=== PATIENT | female | born 1995 | race Two or more races ===

== ENCOUNTER 2017-05-05 13:35 | Emergency (ER) | payer OTHER ==
[2017-05-05 13:47] VITALS: BP 119/57; PULSE 68; RESP 16; TEMP 98; O2SAT 99
[2017-05-05 14:16] LABS: BASO # 0.1 K/uL (0.0-0.2); BASO % 0.6 % (0.0-2.0); EOS # 0.2 K/uL (0.0-0.7); EOS % 1.2 % (0.0-4.0); HEMATOCRIT 41.4 % (34.0-47.0); LYMPH # 2.3 K/uL (1.0-4.3); LYMPH % 18.2 % (20.0-40.0); MEAN CELL VOLUME 85.1 fl (81.0-99.0); MEAN CORPUSCULAR HEMOGLOBIN 26.7 pg (27.0-31.0); MEAN CORPUSCULAR HGB CONC 31.4 g/dL (33.0-37.0); MEAN PLATELET VOLUME 9.8 fl (7.2-11.7); MONO # 1.1 K/uL (0.0-0.8); MONO % 8.7 % (0.0-10.0); NEUT # 8.9 K/uL (1.8-7.0); NEUT % 71.3 % (50.0-75.0); RED CELL DISTRIBUTION WIDTH 15.1 % (11.5-14.5); WHITE BLOOD COUNT 12.5 K/uL (4.8-10.8)
--- NOTE | 2017-05-05 14:16 | ED PDOC ---
HPI: Abdomen Time Seen by Provider: 05/05/17 13:47 Chief Complaint (Nursing): Abdominal Pain Chief Complaint (Provider): Abdominal pain History Per: Patient History/Exam Limitations: no limitations Onset/Duration Of Symptoms: Days (1) Outside of [place] travel?: No Current Symptoms Are (Timing): Still Present Location Of Pain/Discomfort: Epigastric Quality Of Discomfort: "Pain" Associated Symptoms: Nausea, Vomiting. denies: Diarrhea, Back Pain, Urinary Symptoms Additional Complaint(s): The patient is a 21yo female, presents to the ED for evaluation of epigastric pain, present since last night and is associated with 6 episodes of vomiting. Patient also reports associated nausea but denies any diarrhea. Patient reports she has a history of gastritis and GERD and is unsure if her symptoms are caused by that. Patient is also unsure if she is and reports her last menstrual period was approximately 2 weeks ago. She denies any associated vaginal bleeding, fever, back pain or chest pain. She offers no additional medical complaints. PCP: None provided Abnormal Vaginal Bleeding: No Last Menstral Period: 2 weeks ago : 1 Miscarriage: 1 Past Medical History Reviewed: Historical Data, Nursing Documentation, Vital Signs Vital Signs: Last Vital Signs Temp 98.0 F 05/05/17 13:44 Pulse 68 05/05/17 13:44 Resp 16 05/05/17 13:44 BP 119/57 L 05/05/17 13:44 Pulse Ox 99 05/05/17 14:21 - Medical History PMH: Arthritis, Gastritis, GERD Other PMH: Rheumatoid arthritis - Surgical History Surgical History: Appendectomy, Cholecystectomy - Family History Family History: States: Unknown Family Hx - Social History Current smoker - smoking cessation education provided: No Alcohol: None Drugs: Denies - Home Medications Home Medications: Ambulatory Orders Medication Instructions Recorded Ibuprofen [Motrin] 600 mg PO Q6 PRN #20 tab 08/02/14 Tobramycin/Dexamethasone [Tobradex 3.5 gm LEFTEYE Q8 #1 tube 08/02/14 Opht Oint] Dicyclomine [Bentyl] 20 mg PO Q12 PRN #20 tab 10/18/14 Nitrofurantoin Macrocrystals 100 mg PO BID #14 cap 10/18/14 [Macrobid] Ondansetron [Zofran Odt] 4 mg PO Q8H PRN #15 odt 10/18/14 Ondansetron ODT [Zofran ODT] 4 mg PO Q8 PRN #12 odt 05/05/17 - Allergies Allergies/Adverse Reactions: Allergies Allergy/AdvReac Type Severity Reaction Status Date / Time No Known Allergies Allergy Verified 08/02/14 20:01 Review of Systems ROS Statement: Except As Marked, All Systems Reviewed And Found Negative Constitutional: Negative for: Fever Cardiovascular: Negative for: Chest Pain Gastrointestinal: Positive for: Nausea, Vomiting, Abdominal Pain (epigastric). Negative for: Diarrhea Genitourinary Female: Negative for: Vaginal Bleeding Musculoskeletal: Negative for: Back Pain Physical Exam - Physical Exam Appears: Positive for: Non-toxic, No Acute Distress Head Exam: Positive for: ATRAUMATIC, NORMAL INSPECTION, NORMOCEPHALIC Skin: Positive for: Normal Color, Warm Eye Exam: Positive for: Normal appearance Neck: Positive for: Normal, Supple Cardiovascular/Chest: Positive for: Regular Rate, Rhythm. Negative for: Murmur Respiratory: Positive for: Normal Breath Sounds. Negative for: Respiratory Distress Gastrointestinal/Abdominal: Positive for: Soft, Tenderness (mild epigsatric tenderness) Back: Positive for: Normal Inspection. Negative for: L CVA Tenderness, R CVA Tenderness Extremity: Positive for: Normal ROM. Negative for: Deformity, Swelling Neurologic/Psych: Positive for: Alert, Oriented. Negative for: Motor/Sensory Deficits - Laboratory Results Result Diagrams: 05/05/17 14:13 05/05/17 14:13 - ECG O2 Sat by Pulse Oximetry: 99 (RA) Pulse Ox Interpretation: Normal - Progress Re-evaluation Time: 15:30 Condition: Re-examined, Improved Medical Decision Making Medical Decision Making: Time: 1355 Impression: Abdominal pain and vomiting Differential: Upreg is negative and Udip is negative as well; Differential includes but is not limited to gastritis, pancreatitis, GERD Plan: -- CMP -- Lipase -- IV NS 1L -- Pepcid 20 mg IVP -- Zofran 4mg IV --Reassess Scribe Attestation: Documented by Rosalba Severino acting as a scribe for Rashaad Morales MD Provider Scribe Attestation: All medical record entries made by the Scribe were at my direction and personally dictated by me. I have reviewed the chart and agree that the record accurately reflects my personal performance of the history, physical exam, medical decision making, and the department course for this patient. I have also personally directed, reviewed, and agree with the discharge instructions and disposition. Disposition - Clinical Impression Clinical Impression: Abdominal pain in female patient, Vomiting - Patient ED Disposition Is Patient to be Admitted: No Doctor Will See Patient In The: Office Counseled Patient/Family Regarding: Studies Performed, Diagnosis, Need For Followup - Disposition Referrals: [facility] [Outside] Disposition: Routine/Home Disposition Time: 15:30 Condition: GOOD Additional Instructions: Return for worsening. Follow up with your PCP in 2-3 days. Prescriptions: Ondansetron ODT [Zofran ODT] 4 mg PO Q8 PRN #12 odt PRN Reason: Nausea/Vomiting Instructions: Abdominal Pain (ED)
[2017-05-05] MEDS: Sodium Chloride 0.9% 1,000 ML IV STA (14:17)
[2017-05-05 14:28] LABS: ALB/GLOB RATIO 1.6 (1.0-2.1); ALKALINE PHOSPHATASE 73 U/L (38-126); ALT/SGPT 36 U/L (9-52); AST/SGOT 32 U/L (14-36); BILIRUBIN,TOTAL 0.8 mg/dl (0.2-1.3); BLOOD UREA NITROGEN 14 mg/dl (7-17); CALCIUM 9.6 mg/dL (8.4-10.2); CARBON DIOXIDE 26 mmol/L (22-30); CHLORIDE 101 mmol/L (98-107); GFR AFRICAN-AMERICAN > 60; GLUCOSE,RANDOM 91 mg/dL (65-105); LIPASE 19 U/L (23-300); SODIUM 140 mmol/l (132-148)
== END 2017-05-05 16:05 | disposition home or self-care (01) ==
LOC: H.ER 13:35
DX: K21.9 Gastro-esophageal reflux disease without esophagitis (principal)
CPT/HCPCS: 80053; 81025; 83690; 85025; 96374; 96375; 99284; J2405; J7040